=== PATIENT | male | born 1985 | race Hispanic/Latino ===

== ENCOUNTER 2020-09-08 17:07 | Emergency (ER) | payer OTHER, SELFPAY ==
[2020-09-08 17:11] VITALS: BP 144/96; PULSE 65; RESP 17; TEMP 36.7; O2SAT 100
--- NOTE | 2020-09-08 18:23 | ED.WOUNDLAC ---
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 He was using a hammer on a project outside when it ricocheted off of a hard object and the claws struck him in the forehead resulting in a 2 cm laceration. He denies the use of blood thinners, alcohol or street drugs. His tetanus is current. He suffered no loss of consciousness and has full recall of the event. Other than a bleeding wound he is otherwise well and free of complaint. He has had no nausea, vomiting or neurologic symptoms such as numbness, tingling or weakness Onset (ago): hour(s) Location: face Place: home Patient tetanus UTD: Yes Context: accidental Treatments prior to arrival: bandage Related Data Home Medications Medication Instructions Recorded Confirmed No Known Home Medications 09/08/20 09/08/20 Allergies Allergy/AdvReac Type Severity Reaction Status Date / Time No Known Drug Allergies Allergy Verified 09/08/20 17:14 Review of Systems Constitutional Constitutional: Denies chills, Denies fatigue, Denies fever(s), Denies frequent falls, Denies lethargy and Denies weakness Eyes Eyes: Denies change in vision, Denies eye discharge, Denies irritation and Denies loss of vision ENT Ears, Nose, Mouth, and Throat: Denies change in voice, Denies dizziness, Denies neck pain, Denies sore throat and Denies throat swelling Cardiovascular Cardiovascular: Denies chest pain, Denies irregular heart rhythm, Denies lightheadedness, Denies palpitations, Denies dyspnea, Denies dyspnea on exertion and Denies orthopnea Respiratory Respiratory: Denies cough, Denies dyspnea, Denies dyspnea on exertion and Denies wheezing Gastrointestinal Gastrointestinal: Denies abdominal pain, Denies change in bowel habits, Denies diarrhea, Denies nausea and Denies vomiting Musculoskeletal Musculoskeletal: Denies neck pain and Denies numbness Integumentary/Breasts Skin/Breast: Denies pruritus, Denies erythema, Denies rash and Reports wounds Neurologic Neurologic: Denies behavioral changes, Denies confusion, Denies dizziness, Denies frequent falls, Denies loss of vision, Denies numbness and Denies weakness Psychiatric Psychiatric: Denies anxiety, Denies behavioral changes, Denies confusion, Denies depression, Denies homicidal ideation and Denies suicidal ideation Endocrine Endocrine: Denies fatigue, Denies flushing and Denies palpitations Hematologic/Lymphatic Hematologic/Lymphatic: Denies easy bruising Allergic/Immunologic Allergic/Immunologic: Denies urticaria, Denies throat swelling and Denies wheezing Patient History Social History Smoking Status: Never smoker Smoking Status: Never smoker alcohol intake frequency: other Substance Use Type: does not use Exam Narrative Exam Narrative: GEN: AOx3 and in mild distress. GCS 15 HEAD: 2cm laceration central forehead. No depressed skull fracture EYES: Pupils are equal, round, and reactive to light and accommodation. Extraoccular muscles are intact bilaterally. There is no subconjunctival hemorrhage or exudate. CHEST: Lungs are clear to auscultation bilaterally and free of wheezes, rales, or rhonchi. Heart rate is regular rhythm, there are no murmurs, clicks, rubs, or gallops. There is no chest wall tenderness. ABD: Abdomen is soft and nontender. There is no guarding or rebound. Bowel sounds are normal in all 4 quadrants. There is no mass or organomegaly. EXT: Full painless ROM of all extremities with no loss of sensation or strength. SKIN: Warm, pink, and dry. No erythema or rash Initial Vital Signs Initial Vital Signs: Vital Signs Temperature 98.1 F 09/08/20 17:11 Pulse Rate 65 09/08/20 17:11 Respiratory Rate 17 09/08/20 17:11 Blood Pressure 144/96 H 09/08/20 17:11 Pulse Oximetry 100 09/08/20 17:11 Procedures Laceration Repair Laceration 1: Site: face Size (cm): 2 Description: linear Depth: simple, single layer Local Anesthetic: lidocaine 1% and with epi Amount of anesthesia used (mL): 3 Pre-repair: wound explored, irrigated extensively and deep structures intact Skin layer closed with: nylon Size (cm): 6-0 Number of sutures: 3 Technique: simple, interrupted Course Orders Ordered: Discontinued Medications Lidocaine/Epinephrine (Lidocaine 1% W/Epi) 1 ml SUBCUT NOW ONE Stop: 09/08/20 18:01 Last Admin: 09/08/20 18:29 Dose: 1 ml Documented by: GOKUL Vital Signs Vital signs: Vital Signs - 8 hr 09/08/20 17:11 Temperature 98.1 F Pulse Rate 65 Respiratory Rate 17 Blood Pressure 144/96 H Pulse Oximetry 100 Discharge Plan Departure Patient Disposition: Home Clinical Impression: Laceration Instructions: DI for Laceration Repair Activity Restrictions/Additional Instructions: Please keep the wound clean and dry to the best of your ability. Please monitor for signs of infection such as redness to the skin or increasing pain. Have the sutures removed by your doctor in about 7 days. If you are unable to get into your doctor, we would be happy to remove the sutures in that same timeframe. Prescriptions: No Action No Known Home Medications RF: 0
[2020-09-08] MEDS: LIDOCAINE 1% W/EPI 1 ML SUBCUT (18:29)
== END 2020-09-08 19:10 | disposition home or self-care (01) ==
PROVIDERS: Emergency Provider Emergency Medicine
DX: S01.81XA Laceration without foreign body of other part of head, initial encounter (principal); W22.8XXA Striking against or struck by other objects, initial encounter
CPT/HCPCS: 12011; 99281; 99283